=== PATIENT | female | born 1965 | race Caucasian/White ===

== ENCOUNTER 2020-10-28 15:08 | Emergency (ER) | payer OTHER ==
[~2020-10-28] VITALS: Ht 177.8 cm; Wt 77.1 kg
[~2020-10-28 15:08] MED LIST: EFFEXOR 5050 MG/1 T1 PO; PROMETHAZINE-D120 ML PO; TENORMIN25 MG PO; TRAZODONE HCL50 MG PO
[2020-10-28] MEDS ORDERED: LEXAPRO 10 MG T10 MG PO (15:41)
[2020-10-28] MEDS ORDERED: CLOBETASOL PROP15 G1 TOP (16:29)
[2020-10-28] MEDS ORDERED: PREDNISONE 20 M20 MG PO (16:29)
[2020-10-28] MEDS ORDERED: NORCO5 PO (16:29)
[2020-10-28 16:45] VITALS: BP 135/95
== END 2020-10-28 16:45 | disposition home or self-care (01) ==
LOC: M.ERS 15:08
DX: L40.1 Generalized pustular psoriasis (principal); I10 Essential (primary) hypertension; Z90.710 Acquired absence of both cervix and uterus